=== PATIENT | male | born 1985 ===

== ENCOUNTER 2016-12-17 13:52 | Emergency (ER) | payer OTHER ==
[2016-12-17] MEDS ORDERED: Lidocaine 5% Patch TD STA (15:08)
[2016-12-17] MEDS ORDERED: Lidocaine 5% Patch TD ONE (15:12)
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
[2016-12-17 16:36] VITALS: BP 113/78; PULSE 88; RESP 20; TEMP 98.2
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
[2016-12-18 12:41] VITALS: O2SAT 98
== END 2016-12-17 16:38 | disposition home or self-care (01) ==
LOC: C.ER 13:52
DX: S29.012A Strain of muscle and tendon of back wall of thorax, initial encounter (principal); S16.1XXA Strain of muscle, fascia and tendon at neck level, initial encounter; V89.2XXA Person injured in unspecified motor-vehicle accident, traffic, initial encounter